=== PATIENT | female | born 1950 | race Caucasian/White ===

== ENCOUNTER 2025-05-29 16:03 | Outpatient (CLI) | payer BC ==
[~2025-05-29 16:03] MED LIST: ALBU6.7H3 IH; ASPI-1265 PO; BUPR150T8 PO; CITA-178 PO; HYDR-3965 PO; LANS30TA5 PO; METF500T PO
--- NOTE | 2025-05-30 03:33 | RADIOLOGY REPORT ---
INDICATION: CHRONIC LOW BACK PAIN COMPARISON: None TECHNIQUE: 5 views of the lumbar spine were obtained. FINDINGS: The lumbar vertebral alignment is normal. Moderate L4-L5 and moderate to severe L5-S1 disc height loss with adjacent endplate sclerosis and anterior osteophytosis. The intervertebral disc spaces are otherwise well-maintained. Moderate bilateral facet arthropathy is noted. No acute fracture, vertebral compression deformity or aggressive osseous lesions. The paravertebral soft tissues are grossly unremarkable. Atherosclerotic vascular calcifications. IMPRESSION: 1. No acute fracture. 2. 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
--- NOTE | 2025-05-30 03:33 | RADIOLOGY REPORT ---
CLINICAL INDICATION: ARTHRITIS LEFT KNEE TECHNIQUE: DI KNEE, COMP 4 VW MIN Comparison: None FINDINGS/IMPRESSION: : There is no evidence of acute fracture or dislocation. Osteoarthritic degenerative change includes moderate to severe medial tibiofemoral and patellofemoral compartment narrowing with associated osteophytosis. Soft tissues are unremarkable.
== END 2025-05-29 23:59 | disposition home or self-care (01) ==
LOC: RAD 16:03
PROVIDERS: ATTEND General Practice
DX: M47.817 Spondylosis without myelopathy or radiculopathy, lumbosacral region (principal); M43.17 Spondylolisthesis, lumbosacral region; M54.50 Low back pain, unspecified; M25.78 Osteophyte, vertebrae
CPT/HCPCS: 72110; 73564